=== PATIENT | female | born 1980 | race African-American/Black ===

== ENCOUNTER 2023-10-14 09:30 | Outpatient (CLI) | payer BC, SELFPAY ==
--- NOTE | ~2023-10-14 | MR_ITS ---
EXAMINATION: MR femur RT wo con DATE: 10/14/2023 10:38 INDICATION: Right quadriceps tendon injury with palpable pop 2 weeks prior presenting with pain at th e anterior distal right thigh. TECHNIQUE: Magnetic resonance imaging (MRI) of the mid to distal right thigh was performed without in travenous contrast. A marker was placed over the site of maximal pain. Sequences included axial T1-w eighted FSE, axial T2-weighted FS FSE, coronal T1-weighted FSE, coronal T2-weighted FS FSE, sagittal T1-weighted FSE and sagittal T2-weighted FS FSE. Precontrast axial, sagittal and coronal T1-weighted FS FSE and fluid sensitive FSE STIR. The contralateral left thigh is included on the coronal imaging. COMPARISON: None. FINDINGS: Normal bone marrow signal in the operative report will be in the visualized bilateral femurs and 12 t he proximal tibia and fibula. No reactive edema, fracture or pathologic marrow replacing process. Mus culature in the mid to distal bilateral thighs demonstrates symmetric bulk and normal signal. The ana paula driceps tendon, patellar tendon and medial and lateral hamstring tendons appear normal. There is smal l amount of asymmetric soft tissue edema in the fat superficial and deep to the distal are otherwise normal-appearing right iliotibial band which could be due to of posttraumatic contusion, low-grade st rain or more chronic iliotibial band friction syndrome. Physiologic amount fluid in the knee joints. Although not diagnostically evaluated on the larger [id number] images, the stabilizing ligaments o f the right knee appear grossly intact. IMPRESSION: 1. Focal mild edema in the fat deep and superficial to the intact appearing distal right iliotibial b and which could be due to of posttraumatic contusion, low-grade strain or more chronic iliotibial ban d friction syndrome. 2. Otherwise unremarkable study with normal right quadriceps tendon. Reviewed, dictated and finalized at location A. [employer] IMPRESSION: 1. Focal mild edema in the fat deep and superficial to the intact appearing dis andrew right iliotibial band which could be due to of posttraumatic contusion, low -grade strain or more chronic iliotibial band friction syndrome. 2. Otherwise unremarkable study with normal right quadriceps tendon.
== END 2023-10-14 09:31 ==
LOC: GOSHIMG 09:33
PROVIDERS: PCP Internal Medicine; Visit Provider Orthopaedic Surgery
DX: S76.109A Unspecified injury of unspecified quadriceps muscle, fascia and tendon, initial encounter (principal); X58.XXXA Exposure to other specified factors, initial encounter
CPT/HCPCS: 73718